=== PATIENT | female | born 1960 | race Two or more races ===

== ENCOUNTER 2023-08-03 10:31 | Emergency (ER) | payer OTHER ==
[2023-08-03 10:43] VITALS: RESP 18; BMI 26.5
[2023-08-03] MEDS ORDERED: predniSONE 20 MG TABLET (UD) PO ONE (11:27)
[2023-08-03] MEDS ORDERED: SODIUM CHLORIDE 1,000 ML IV ONE (11:27)
[2023-08-03] MEDS ORDERED: FAMOTIDINE 20 MG/50 ML IVPB 20 MG in PREMIX 50 IVPB ONE (11:31)
[2023-08-03] MEDS ORDERED: predniSONE 20 MG TABLET (UD) ONE (12:03)
[2023-08-03] MEDS ORDERED: FAMOTIDINE 20 MG/50 ML IVPB 20 MG/50 ML MG IVPB ONE (12:04)
[2023-08-03 13:05] LABS: POTASSIUM 3.7 mmol/L (3.5-5.1)
[2023-08-03 13:07] LABS: ALBUMIN 3.9 g/dl (3.4-5.0); BASO % 0.3 % (0-2.0); CALCIUM 9.4 mg/dL (8.5-10.1); HEMATOCRIT 46.7 % (32.4-45.2); HEMOGLOBIN 15.8 GM/dL (10.7-15.3); LYMPH % 19.8 % (8-40); MCH 31.7 pg (25.7-33.7); MCHC 33.8 g/dl (32.0-36.0); MEAN CELL VOLUME 93.7 fl (80-96); MEAN PLT VOLUME 9.9 fl (7.5-11.1); MONO % 5.5 % (3.8-10.2); NEUT % 73.4 % (42.8-82.8); PLATELET COUNT 261 10^3/uL (134-434); RBC 4.98 M/mm3 (3.60-5.2); RDW 12.8 % (11.6-15.6)
[2023-08-03 13:08] LABS: BLOOD UREA NITROGEN 12.6 mg/dL (7-18)
[2023-08-03 13:11] LABS: CREATININE 0.8 mg/dL (0.55-1.3)
[2023-08-03 13:13] LABS: BILIRUBIN,TOTAL 0.6 mg/dL (0.2-1); TOT PROT 7.9 g/dl (6.4-8.2)
[2023-08-03 13:56] LABS: EPI CELLS 3 /uL (0-25.1); HYALINE CASTS 0 /uL (0-3.1); PH,URINE 6.5 (5.0-8.0); URINE APPEARANCE CLEAR; URINE BACTERIA >9,000 /uL (0-1359); URINE BILIRUBIN NEGATIVE (NEGATIVE); URINE COLOR DK YELLOW; URINE GLUCOSE (UA) NEGATIVE (NEGATIVE); URINE KETONE NEGATIVE (NEGATIVE); URINE LEUK ESTERASE TRACE (NEGATIVE); URINE NITRITE POSITIVE (NEGATIVE); URINE PROTEIN NEGATIVE (NEGATIVE); URINE RBC 4 /uL (0-23.9); URINE WBC 10 /uL (0-25.8)
[2023-08-03 15:32] VITALS: BP 120/49; PULSE 63; TEMP 98.3
== END 2023-08-03 16:22 | disposition home or self-care (01) ==
LOC: JER 10:31
PROC: 3E033GC Introduction of Other Therapeutic Substance into Peripheral Vein, Percutaneous Approach (ICD-10-PCS; principal; 2023-08-03)
PROC: 3E033GC Introduction of Other Therapeutic Substance into Peripheral Vein, Percutaneous Approach (ICD-10-PCS; 2023-08-03)
DX: N30.00 Acute cystitis without hematuria (principal); T50.905A Adverse effect of unspecified drugs, medicaments and biological substances, initial encounter
CPT/HCPCS: 36415; 80053; 81003; 85025; 99284-25